=== PATIENT | male | born 1985 ===

== ENCOUNTER → 2018-08-25 18:21 | Outpatient (CLI) | payer OTHER, SELFPAY ==
--- NOTE | 2018-08-25 | DI.MRI.S_ITS ---
PROCEDURE: MR LUMBAR SPINE WO CON INDICATIONS: LUMBAR SPINE PAIN TECHNIQUE: Noncontrast sagittal T1 spin echo and T2 fast echo, sagittal STIR, axial T1 and T2 fast spin echo through the lumbar spine. In cases with scoliosis, additional coronal T2 fast spin echo may be performed. COMPARISON: [facility] [place], [place], XR LUMBAR SPINE WITH OLBIQUES PLUS FLEXION EXTENSION, 07/04/2018, 13:21. FINDINGS: Image quality: Excellent. Alignment and Curvature: There is normal bony alignment. Bone Marrow: Mild reactive endplate changes noted adjacent to the L5-S1 disc. No acute vertebral body compression fractures. Spinal Cord: Conus medullaris terminates at the L2 level. Visualized cord demonstrates normal signal and size. Paraspinous Soft Tissues: No paravertebral masses. L1-L2: Normal appearance. L2-L3: Normal appearance. L3-L4: Normal appearance. L4-L5: Normal appearance. L5-S1: Loss of disc signal. Mild, diffuse disc bulge. Small left central disc protrusion. No central stenosis. Mild bilateral facet hypertrophy. Moderate bilateral neural foraminal narrowing. Focal high intensity zones noted in the annulus compatible with fissures. IMPRESSION: 1. Mild L5-S1 degenerative disc disease. 2. Mild L5-S1 facet arthropathy. 3. No central stenosis. 4. Moderate bilateral L5-S1 neural foraminal narrowing. 6. No neural impingement. 7. L5-S1 disc annulus fissures. Dictated by: Adelaida Mejia MD, PhD on 08/26/2018 at 9:09 Approved by: Adelaida Mejia MD, PhD on 08/26/2018 at 9:41
== END ==
PROVIDERS: Visit Provider Physical Medicine & Rehabilitation Pain Medicine
DX: M54.5 Low back pain (principal)
CPT/HCPCS: 72148